=== PATIENT | female | born 1960 | race Caucasian/White ===

== ENCOUNTER → 2024-01-30 12:37 | Outpatient (REF) | payer OTHER, SELFPAY ==
[2024-01-30 13:38] LABS: Blood Urea Nitrogen 14 mg/dl (7-17); Glucose 97 mg/dl (70-99)
[2024-01-30 13:39] LABS: Carbon Dioxide 30 mmol/L (22-30); Chloride 103 mmol/L (98-107); Potassium 4.5 mmol/L (3.5-5.1); Sodium 139 mmol/L (135-145); eGFR > 60.00
== END ==
LOC: RCS 12:37
PROVIDERS: ATTENDING PHYSICIAN Specialist; FAMILY PHYSICIAN Family Medicine; REFERRING PHYSICIAN Orthopaedic Surgery
DX: Z01.818 Encounter for other preprocedural examination (principal)
CPT/HCPCS: 36415; 80048; 93005

== ENCOUNTER 2024-08-10 12:08 | Emergency (ER) | payer OTHER, SELFPAY ==
[2024-08-10 12:57] LABS: % Basophils 0.9 % (0-2); % Eosinophils 3.5 % (0-6); % Immature Granulocytes 0.2 % (0-0.5); % Lymphocytes 43.3 % (20.5-51.1); % Monocytes 7.9 % (1.7-9.3); % Neutrophils 44.2 % (42.2-75.2); Absolute Basophils 0.1 10^3/uL (0-0.2); Absolute Eosinophils 0.2 10^3/uL (0-0.7); Absolute Lymphocytes 2.4 10^3/uL (1.2-3.4); Absolute Monocytes 0.4 10^3/uL (0.1-0.6); Absolute Neutrophils 2.4 10^3/uL (1.4-6.5); Hematocrit 41.7 % (37.0-47.0); Hemoglobin 14.1 g/dL (12.0-16.0); Mean Corp Hgb Conc. 33.8 g/dL (33.0-37.0); Mean Corpuscular Hgb 30.9 pg (27.0-31.0); Mean Corpuscular Volume 91.2 fL (81.0-99.0); Mean Platelet Volume 9.1 fL (7.4-10.4); Nucleated Red Blood Cells % 0 %; Platelet Count 203 10^3/uL (130-400); Red Blood Cell Count 4.57 10^6/uL (4.20-5.40); Red Cell Dist. Width 12.5 % (11.5-14.5); White Blood Cell Count 5.4 10^3/uL (4.8-10.8)
--- NOTE | 2024-08-10 13:11 | EDRN ---
Dr. Gant in room w/ pt.
[2024-08-10 13:24] LABS: ALT (SGPT) 19 U/L (0-35); AST (SGOT) 24 U/L (14-36); Alkaline Phosphatase 52 U/L (38-126); Blood Urea Nitrogen 10 mg/dl (7-17); Calcium 8.8 mg/dl (8.4-10.2); Carbon Dioxide 26 mmol/L (22-30); Chloride 108 mmol/L (98-107); Glucose 93 mg/dl (70-99); Potassium 4.8 mmol/L (3.5-5.1); Sodium 139 mmol/L (135-145); Total Bilirubin 0.6 mg/dl (0.2-1.3); Total Protein 6.2 g/dl (6.3-8.2); eGFR > 60.00
[2024-08-10 13:25] LABS: Erythrocyte Sed Rate 6 mm/hour (0-20)
--- NOTE | 2024-08-10 13:31 | ED.GENMED ---
History of Present Illness
General
Chief Complaint: Back Pain
Source: patient
Exam Limitations: none
Time Seen by Provider: 08/10/24 13:05
Nursing documentation reviewed up to this point in time: agreed with
History of Present Illness
History of Present Illness:
Patient presents to ED secondary to worsening neck and back pain, over the past 1 year after 'serious accident'. Patient has to work with local pain management physician without much relief. Recently, patient was evaluated by PMNR specialist at
[facility] for the last week ordered MRI of her back. Patient received phone call today from her physician discussing MRI results, which revealed multiple areas with significant bulging disks with nerve impingement. Patient was advised to
come to [facility] to be evaluated by [facility] orthopedic surgeon for potential surgery. Denies fever or chills. Denies nausea or vomiting. Denies new trauma. Denies loss of sensation or weakness. Denies urinary or bowel incontinence.
Patient has been taking tramadol as well as muscle relaxant medication, without much relief in symptoms.
Past History
Past History
ED Past Medical History: Fibromyalgia, Psychiatric (depression on Cymbalta) and Other (Migraines, Fx right leg, Left arm fracture. PE)
ED Past Surgical History: Orthopedic (Right knee surgery, right hip tendon repair, Left rotator cuff) and Other (craniotomy for menigioma, 4 eye surgery, Cataracts)
Social History
Tobacco: Former smoker
Alcohol: Occasional
Personal:
Living: with family
Employment: Disabled
Review of Systems
Review of Systems
Allergies reviewed?: Yes
Constitutional: Reports no symptoms
Respiratory: Reports no symptoms
Cardiac: Reports no symptoms
ABD/GI: Reports no symptoms; Denies nausea or vomiting
: Reports no symptoms; Denies incontinence
Musculoskeletal: Reports neck pain and back pain
Skin: Reports no symptoms
Neurological: Reports no symptoms; Denies weakness or numbness
Phy Exam
Physical Exam
Physical Exam:
Physical Exam
General: mild painful distress, not acutely ill. afebrile
Head: nc/at. eomi
Neck: supple. no midline tenderness. ROM limited due to pain
Heart: s1/s2 regular rate and rhythm
Lungs: no acute respiratory distress. clear bilaterally
Abdomen: normal bowel sounds. not tender.
Neuro: alert and oriented x 3. no focal neurological deficits
Skin: no rash
Psychiatric: well kept. interactive and cooperative
Extremities: no edema. no calf tenderness
Course
Orders/Labs/Results
Orders:
Orders
08/10/24 12:39
Electrocardiogram (*1) Urgent
Reason for Study: Syncope
EKG- Treatment ONCE
08/10/24 12:51
C-Reactive Protein Urgent
Comment: ADD
CMP [Comprehensive Metabolic Panel] Urgent
Complete Blood Count/With Diff Urgent
Erythrocyte Sed Rate Urgent
Comment: ADD
08/10/24 13:11
Add On- LAB Urgent
Tests Added?: ESR, CRP
08/10/24 13:27
HYDROmorphone [Dilaudid] 1 mg IV NOW STA
08/10/24 15:45
Dexamethasone Sod Phosphate [Decadron] 10 mg IV NOW STA
HYDROmorphone [Dilaudid] 1 mg IV NOW STA
Abnormal Lab Results
08/10/24
12:51
Chloride 108 H mmol/L
(98-107)
Total Protein 6.2 L g/dl
(6.3-8.2)
08/10/24 12:51
08/10/24 12:51
Vital Signs
Initial and Last Documented VS:
Initial Vital Signs
Temp Pulse Resp Pulse Ox
98.1 F 69 18 99
08/10/24 12:11 08/10/24 12:11 08/10/24 12:11 08/10/24 12:11
Last Documented Vital Signs
Temp Pulse Resp BP Pulse Ox
98.1 F 64 16 117/77 98
08/10/24 12:11 08/10/24 17:15 08/10/24 17:15 08/10/24 17:15 08/10/24 17:15
MDM/Problems Addressed
MDM/Problems Addressed:
History and exam consistent with likely worsening underlying chronic neck and back pain. Fortunately, patient is afebrile, hemodynamically stable, and without any exam findings concerning for cauda equina syndrome. After treatment, patient reports
mild improvement symptoms. Discussed with spine, Dr. Juventino Gomez, who agreed to evaluate the patient urgently as an outpatient. In the meantime, patient will be provided with course of steroids along with pain medication. Patient agrees with
treatment plan to discharge home with urgent outpatient follow-up. Patient will return to ED with worsening symptoms. Patient discharged home in stable condition, to the care of her spouse.
*Pulse Oximetry
SaO2: 99
Oxygen Mode of Delivery: Room air
Patient hypoxic: no
*Critical Care Note
Total Time (30-74mins, 75-104mins- exclusive of procedures): Not Applicable
ED Attending Note
-
Portions of this chart may have been created with voice recognition software.� Occasional wrong word or��sound alike� substitutions may have occurred due to the inherent limitations of voice recognition software.
Discharge Plan
Departure
Patient Disposition: Home (Routine Discharge)
Date of Disposition: 08/10/24
Time of Disposition: 16:25
Patient with high blood pressure during this ER visit?: No
Condition: Good
Discharge Problem:
Neck pain, Back pain
Instructions: Low Back Pain (DC), Neck pain - ED discharge instructions
Prescriptions:
New
methylprednisolone [Medrol (Hi)] 4 mg tablets,dose pack
4 mg PO DAILY Qty: 21 0RF
Rx Instructions:
As directed
hydromorphone [Dilaudid] 2 mg tablet
2 mg PO Q6H PRN (Reason: Pain) Qty: 10 0RF
No Action
fluticasone propion-salmeterol [Advair Diskus] 1 EACH blister with device
1 puff inhalation R BIDPRN PRN (Reason: sob)
clonazepam 2 MG tablet
2 mg PO TIDPRN PRN (Reason: anxiety)
Patient Comments:
10/17/2020: last filled 10/13/20, 90 tabs for 30 days from [facility] #[id number]
gabapentin 300 MG capsule
300 mg PO BID
sertraline 50 MG tablet
50 mg PO DAILY
sennosides [senna] 1 TABLET tablet
2 tab PO BID 0RF
acetaminophen 325 MG tablet
1,000 mg PO Q8H Qty: 0 0RF
aspirin 325 MG tablet,delayed release (DR/EC)
325 mg PO DAILY Qty: 14 0RF
pantoprazole 40 MG tablet,delayed release (DR/EC)
40 mg PO DAILY Qty: 14 0RF
docusate sodium 100 MG capsule
100 mg PO BID 0RF
oxycodone 5 MG tablet
5 mg PO Q4HPRN PRN (Reason: moderate pain, take if Ultram ) Qty: 30 0RF
Rx Instructions:
moderate pain, take if Ultram doesnt work
polyvinyl alcohol-povidon(PF) [Refresh Classic (PF)] 10 DROPS dropperette
1 drops ophthalmic (eye) QIDPRN PRN (Reason: dry eyes) 0RF
tramadol 50 MG tablet
50 mg PO Q6HPRN PRN (Reason: moderate pain take first) Qty: 30 0RF
pantoprazole 40 MG tablet,delayed release (DR/EC)
40 mg PO DAILY Qty: 30 0RF
Referrals:
Pepe Dixon MD [Family Provider, Family Practice]
Juventino Gomez MD [Active, Orthopedics]
Activity Restrictions/Additional Instructions:
As discussed, please follow-up with referred orthopedic surgeon for further evaluation and treatment. Your prescriptions have been sent electronically to [facility] pharmacy in [place].
Interventions
Interventions:
*Risk Screen - Suicide Last Done: 08/10/24 12:11
*General Assessment Last Done: 08/10/24 14:25
*Neglect/Abuse Screening Last Done: 08/10/24 12:11
*ED- Fall Risk Assessment Last Done: 08/10/24 14:25
*ED COVID-19 Vaccine History Last Done: 08/10/24 14:25
*Nursing Disposition Last Done: 08/10/24 17:15
ED-Musculoskeletal Assessment Last Done: 08/10/24 14:50
Discharge Date and Time
Discharge Date/Time: 08/10/24 17:15
Print Language: ITALIAN
[2024-08-10 14:14] LABS: C-Reactive Protein < 5.00 mg/L (0.0-10.00)
[2024-08-10 14:24] VITALS: BMI 26.5
[2024-08-10] MEDS: DILAUDID 1 MG IV ×2 (14:32→16:11)
[2024-08-10 14:34] VITALS: BP 102/53
[2024-08-10 15:00] VITALS: BP 107/67
[2024-08-10 16:00] VITALS: BP 119/69
[2024-08-10] MEDS: DECADRON 10 MG IV (16:11)
--- NOTE | 2024-08-10 16:47 | EDRN ---
Pt received a requested by her purealaina and voided small amount. is presently in room w/pt.
[2024-08-10 17:15] VITALS: BP 117/77
== END 2024-08-10 17:15 | disposition home or self-care (01) ==
LOC: EMR 12:08
PROVIDERS: Student in an Organized Health Care Education/Training Program; EMERGENCY PHYSICIAN Emergency Medicine; FAMILY PHYSICIAN Family Medicine
DX: M54.2 Cervicalgia (principal); M54.9 Dorsalgia, unspecified; M79.7 Fibromyalgia; Z87.891 Personal history of nicotine dependence
CPT/HCPCS: 96374; 96375; 96376; 99284; 80053; 85025; 85652; 86140; 93005

== ENCOUNTER 2024-09-21 17:15 | Emergency (ER) | payer OTHER, SELFPAY ==
[2024-09-21 17:32] VITALS: BP 84/57
[2024-09-21 17:52] LABS: Hematocrit 40.1 % (37.0-47.0); Hemoglobin 13.5 g/dL (12.0-16.0); Mean Corp Hgb Conc. 33.7 g/dL (33.0-37.0); Mean Corpuscular Volume 93.0 fL (81.0-99.0); Nucleated Red Blood Cells % 0 %; Platelet Count 155 10^3/uL (130-400); Red Cell Dist. Width 12.8 % (11.5-14.5)
[2024-09-21 18:16] LABS: Troponin I < 0.012 ng/ml
[2024-09-21 18:19] LABS: ALT (SGPT) 20 U/L (0-35); AST (SGOT) 26 U/L (14-36); Albumin 4.2 g/dl (3.5-5.0); Alkaline Phosphatase 42 U/L (38-126); Blood Urea Nitrogen 15 mg/dl (7-17); Calcium 9.2 mg/dl (8.4-10.2); Carbon Dioxide 24 mmol/L (22-30); Chloride 107 mmol/L (98-107); Glucose 87 mg/dl (70-99); Potassium 4.3 mmol/L (3.5-5.1); Sodium 137 mmol/L (135-145); Total Protein 6.6 g/dl (6.3-8.2); eGFR > 60.00
== END 2024-09-21 18:45 | disposition left against medical advice (07) ==
LOC: EMR 17:15
PROVIDERS: EMERGENCY PHYSICIAN Student in an Organized Health Care Education/Training Program
DX: R07.9 Chest pain, unspecified (principal); Z53.21 Procedure and treatment not carried out due to patient leaving prior to being seen by health care provider
CPT/HCPCS: 80053; 84484; 85025; 93005

== ENCOUNTER → 2024-11-17 14:29 | Outpatient (REF) | payer OTHER, SELFPAY | LOC: RAD 14:29 | PROVIDERS: ATTENDING PHYSICIAN Family Medicine | DX: M79.661 Pain in right lower leg (principal); M79.89 Other specified soft tissue disorders; Z78.9 Other specified health status | CPT/HCPCS: 93971 ==

== ENCOUNTER → 2024-12-16 07:55 | Outpatient (REF) | payer OTHER, SELFPAY | LOC: RAD 07:55 | PROVIDERS: ATTENDING PHYSICIAN Physical Medicine & Rehabilitation; FAMILY PHYSICIAN Family Medicine | DX: M25.532 Pain in left wrist (principal) | CPT/HCPCS: 76882 ==